=== PATIENT | male | born 1990 | race Caucasian/White ===

== ENCOUNTER 2018-11-28 06:47 | Day surgery (SDC) | payer OTHER ==
[2018-11-26 10:18] VITALS: BMI 22.8
[~2018-11-28 06:47] MED LIST: HYDROmorphone 0.5 MG/0.5 ML SYRINGE IVP PRN; LACTATED RINGERS 1,000 ML IV SCH; LIDOCAINE 1% 20 ML VIAL (10MG/ML) FOR IV START INTRADERMA PRN; ONDANSETRON 4 MG/2 ML VIAL IVP PRN; ceFAZolin IN SWFI 2 GM/20 ML SYRINGE IVP ONE; fentaNYL (PF) 50 MCG/ML 2 ML AMP IV PRN; metroNIDAZOLE-NS PMX 500 MG in SALINE 1 100ML.BAG IVPB ONE
[2018-11-28 07:09] VITALS: TEMP 97.8
[2018-11-28] MEDS ORDERED: DEXAMETHASONE SOD PHOSPHATE 10 MG/ML 1 ML VIAL IV ONE (07:21)
[2018-11-28] MEDS ORDERED: HEPARIN SODIUM,PORCINE 5,000 UNIT/ML 1 ML VIAL IV ONE (07:22)
[2018-11-28] MEDS ORDERED: KETOROLAC 30 MG/ML 1 ML VIAL ONE (07:54)
[2018-11-28] MEDS ORDERED: MIDAZOLAM 2 MG/2 ML VIAL ONE (07:54)
[2018-11-28] MEDS ORDERED: fentaNYL (PF) 50 MCG/ML 2 ML AMP ONE (07:54)
[2018-11-28] MEDS ORDERED: PROPOFOL 10 MG/ML 20 ML VIAL IV ONE (07:54)
[2018-11-28] MEDS ORDERED: BUPIVACAIN-EPI 0.5%-1:200,000 30 ML VIAL SQ ONE (08:14)
[2018-11-28 08:38] VITALS: RESP 20
--- NOTE | 2018-11-28 08:38 | P.GSHP ---
History of Present Illness H&P Date: 11/28/18 Chief Complaint: Pilonidal cyst This a 28-year-old male presents today for excision of pilonidal cyst. Patient had issues with a chronically infected pilonidal cyst. Past Medical History Additional Past Medical History / Comment(s): pilonidal cyst, samra knee pain History of Any Multi-Drug Resistant Organisms: None Reported Past Surgical History: No Surgical Hx Reported Additional Past Surgical History / Comment(s): wisdom teeth Past Anesthesia/Blood Transfusion Reactions: No Reported Reaction, Family History of Problems w/ Anesthesia Additional Past Anesthesia/Blood Transfusion Reaction / Comment(s): brother states has problems with local anesthesia not working Smoking Status: Current some day smoker - Past Family History Mother Family Medical History: No Reported History Medications and Allergies Home Medications Medication Instructions Recorded Confirmed Type No Known Home Medications 11/26/18 11/28/18 History Allergies Allergy/AdvReac Type Severity Reaction Status Date / Time dust Allergy sneezing Uncoded 11/28/18 07:01 Surgical - Exam Vital Signs Temp Pulse Resp BP Pulse Ox 97.8 F 79 16 150/86 99 11/28/18 07:07 11/28/18 07:07 11/28/18 07:07 11/28/18 07:07 11/28/18 07:07 - General well developed, well nourished, no distress - Eyes PERRL - ENT normal pinna - Neck no masses - Respiratory normal expansion - Cardiovascular Rhythm: regular - Abdomen Abdomen: soft, non tender Assessment and Plan Assessment: Pilonidal cyst. We'll perform excision.
--- NOTE | 2018-11-28 08:49 | P.OP ---
Date of Procedure: 11/28/18 Preoperative Diagnosis: Pilonidal cyst Postoperative Diagnosis: Chronically infected pilonidal cyst Procedure(s) Performed: Excision of pilonidal cyst Anesthesia: ANH Surgeon: Pantera Jackson Estimated Blood Loss (ml): 5 Pathology: other (Rectal polyp) Condition: stable Disposition: PACU Description of Procedure: Patient's placed on the operating table in the prone position. He received IV sedation. [place] cyst was localized 1% local Xylocaine. Using a 15 blade the skin was incised and using left cautery the Harmonic scissors the subcu tissue divided. The specimens of pathology. The Bovie was used for hemostasis. The skin and there is no bleeding seen. The wound was then packed with Kerlix. Patient top procedure well and was sent to recovery in stable condition.
[2018-11-28] MEDS ORDERED: HYDROcodone/APAP 7.5-325MG 1 EACH TAB PO ONE (10:25)
[2018-11-28 10:34] VITALS: BP 105/69; PULSE 67
== END 2018-11-28 10:56 | disposition home or self-care (01) ==
LOC: OR 06:47
PROVIDERS: ATTEND Surgery
DX: L05.91 Pilonidal cyst without abscess (principal)
CPT/HCPCS: 88304

== ENCOUNTER → 2021-12-28 | Outpatient (CLI) | payer OTHER ==
--- NOTE | 2021-12-29 01:08 | MR ---
EXAMINATION TYPE: MR knee RT wo con DATE OF EXAM: 12/28/2021 COMPARISON: None HISTORY: Right inner and outer knee pain, pain behind knee, painful kneecap, locking and swelling for 10 years. No injury. Multiplanar multiecho imaging of the right knee without contrast. There is a mild knee joint effusion. The anterior and posterior cruciate ligaments are intact. Patell a is intact. The lateral and medial menisci appear normal. The collateral ligaments appear intact. There is no evidence of a fracture. No evidence of bone edema . Patella is intact. IMPRESSION: No evidence of meniscal tear. No evidence of ligamentous tear. Mild knee joint effusion suggestive of some nonspecific synovitis.
== END | disposition home or self-care (01) ==
LOC: RADMRIMAIN 18:40
PROVIDERS: ATTEND Orthopaedic Surgery Sports Medicine
DX: M25.461 Effusion, right knee (principal)